=== PATIENT | male | born 1950 | race Caucasian/White ===

== ENCOUNTER 2017-12-12 16:01 | Emergency (ER) | payer OTHER, MEDICARE ==
[~2017-12-12] VITALS: Ht 177.8 cm; Wt 104.3 kg
[2017-12-12] MEDS ORDERED: LIPITOR 20 MG T20 M1 PO (16:21)
[2017-12-12] MEDS ORDERED: NORCO 5-325 TA1 EACH PO (16:21)
[2017-12-12] MEDS ORDERED: LOSARTAN-HCTZ1 EAC3 PO (16:22)
[2017-12-12] MEDS ORDERED: CELEXA10 MG PO (16:22)
[2017-12-12] MEDS ORDERED: TIZANIDINE HCL2 M1 PO (16:23)
[2017-12-12 16:56] LABS: ABSOLUTE EOSINOPHILS 0.2 thou/uL (0.0-0.7); ABSOLUTE LYMPHOCYTES 1.2 thou/uL (0.8-5.3); ABSOLUTE MONOCYTES 0.4 thou/uL (0.0-1.2); ABSOLUTE NEUTROPHILS 3.8 thou/uL (1.6-8.1); BASOPHILS 0.8 %; EOSINOPHILS 3.1 %; HEMATOCRIT 45.3 % (42.0-52.0); HEMOGLOBIN 15.5 gm/dL (14.0-18.0); LYMPHOCYTES 21.8 %; MCHC 34.1 g/dL (28.0-37.0); MCV 93.9 fL (80.0-100.0); MONOCYTES 7.3 %; MPV 6.8 fl. (7.2-11.1); NUCLEATED RBCS 0 /100WBC; PLATELET COUNT* 297 thou/uL (150-400); RBC 4.83 mil/uL (4.50-6.00); RDW-CV 12.3 % (10.5-14.5); WBC 5.6 thou/uL (4.0-11.0)
[2017-12-12 17:03] LABS: POTASSIUM 3.7 mmol/L (3.5-5.1)
[2017-12-12 17:07] LABS: ALBUMIN 4.4 g/dL (3.4-5.0); TOTAL BILIRUBIN 0.9 mg/dL (<0.1-1.0); TOTAL PROTEIN 7.5 g/dL (6.4-8.2)
[2017-12-12] MEDS ORDERED: ROBAXIN500 MG PO (18:16)
[2017-12-12 18:52] VITALS: BP 137/81
== END 2017-12-12 18:52 | disposition home or self-care (01) ==
LOC: M.ERS 16:01
PROVIDERS: Nurse Practitioner Family
DX: S39.011A Strain of muscle, fascia and tendon of abdomen, initial encounter (principal); X58.XXXA Exposure to other specified factors, initial encounter; Y93.89 Activity, other specified; Y92.89 Other specified places as the place of occurrence of the external cause; Y99.8 Other external cause status; I10 Essential (primary) hypertension; E78.5 Hyperlipidemia, unspecified; Z85.46 Personal history of malignant neoplasm of prostate; Z88.7 Allergy status to serum and vaccine